=== PATIENT | female | born 1950 | race Caucasian/White ===

== ENCOUNTER → 2021-12-10 07:57 | Outpatient (CLI) | payer MEDICARE, SELFPAY ==
--- NOTE | ~2021-12-10 | MR_ITS ---
EXAMINATION: MR lumbar spine wo con EXAM DATE: 12/10/2021 09:35 INDICATION: Lumbar radiculopathy lumbar radiculopathy TECHNIQUE: Multi-sequential, multiplanar MR images of the lumbar spine were obtained without contrast . Sagittal T1, T2, T2 fat saturation images. Axial T2 weighted images. There is no prior study for comparison. FINDINGS: Thoracolumbar Coffey rods. There is moderate lumbar levoscoliosis. Interbody fusion at L2-3, L3-4, L4-5 and L5-S1. There is small blooming artifact which appears to be in the right central anterior epidural space at the L3 level, which could be seen with small metallic surgical clip or fo reign body. Laminotomies or laminectomies L2-S1. Paraspinal soft tissue is unremarkable. There is 3 mm anterolisthesis L4 on L5. The vertebral bodies are otherwise aligned. The conus medullaris termina polly at the L1/2 level and has normal signal intensity and morphology. Level by level evaluation: T12-L1: Disc does not extend beyond the endplate margin. Facet arthropathy: Mild. Neural foraminal stenosis: No stenosis. Central canal stenosis: No stenosis. L1-L2: Disc does not extend beyond the endplate margin. Facet arthropathy: Mild. Neural foraminal stenosis: No stenosis. Central canal stenosis: No stenosis. L2-L3: This level is fused. Facet arthropathy: Poorly visualized. Neural foraminal stenosis: No stenosis. Central canal stenosis: No stenosis. L3-L4: This level is fused. Facet arthropathy: Poorly visualized. Neural foraminal stenosis: No stenosis. Central canal stenosis: No stenosis. L4-L5: This level is fused. Facet arthropathy: Fused. Neural foraminal stenosis: No stenosis. Central canal stenosis: No stenosis. L5-S1: This level is fused. Facet arthropathy: Fused. Neural foraminal stenosis: No stenosis. Central canal stenosis: No stenosis. IMPRESSION: 1. Moderate lumbar levoscoliosis. 2. Patent neural foramen and central canal. 3. Blooming artifact posterior to the L3 vertebral body. Reviewed, dictated and finalized at location A. PENDENT CROP CONSULTANT
--- NOTE | ~2021-12-10 | MR_ITS ---
EXAMINATION: MR thoracic spine wo con EXAM DATE: 12/10/2021 09:35 INDICATION: Back pain, thoracic back pain, thoracic right leg pain. Scoliosis. TECHNIQUE: Multi-sequential, multiplanar MR images of the thoracic spine were obtained without contra st. Sagittal T1, T2, T2 fat saturation, axial T2 weighted images reviewed. Correlation is made to MR lumbar spine earlier same date. FINDINGS: There is 26 degrees of thoracic dextroscoliosis, 16 degrees of lumbar levoscoliosis. Thorac olumbar Coffey rods causing artifact. There is moderate anterior wedging 2 and upper thoracic lb tebral body, probably T3. No evidence of central canal stenosis, vertebral bodies appear aligned in t he AP dimension. Limited neural foraminal evaluation due to artifact. Evidence of mild thoracic facet arthropathy. The spinal cord signal intensity and intrinsic morphology is normal. Paraspinal soft ti ssue is unremarkable. No evidence of vertebral body edema. IMPRESSION: Moderate thoracic dextroscoliosis, lumbar levoscoliosis. Reviewed, dictated and finalized at location A. PROCUREMENT COORDINATOR
== END ==
PROVIDERS: Visit Provider Nurse Practitioner Family
DX: M54.6 Pain in thoracic spine (principal); M54.16 Radiculopathy, lumbar region; Z98.1 Arthrodesis status
CPT/HCPCS: 72146; 72148

== ENCOUNTER → 2022-01-25 13:02 | Outpatient (CLI) | payer MEDICARE, SELFPAY ==
--- NOTE | ~2022-01-25 | US_ITS ---
EXAMINATION: US pelvic complete w TV DATE: 01/25/2022 13:48 INDICATION: Right lower quadrant pain and bloating Comparison:No prior studies for comparison. TECHNIQUE: Multiple transabdominal and endovaginal sonographic images of the pelvis performed. FINDINGS: The uterus measures 5.6 x 2.6 x 3.6 cm. There is a shadowing calcified uterine fibroid post eriorly at the fundus measuring 1.3 cm The endometrial complex measures 7 mm. The right ovary measures 1.7 x 1.3 x 1.3 cm and the left ovary measures 1.8 x 1.7 x 0.9 cm. There ar e small follicles in each ovary. Normal doppler signal in both ovaries. There is no free fluid in the pelvis. There are no abnormal masses seen on either side. IMPRESSION: 1. Thickened endomtrial complex. The differential diagnosis includes endometrial hyperplasia, polyp a nd carcinoma. Biopsy is recommended. 2: Calcified 1.3 cm uterine fibroid. Reviewed, dictated and finalized at location B. UE BINDER IMPRESSION: 1. Thickened endomtrial complex. The differential diagnosis includes endometria l hyperplasia, polyp and carcinoma. Biopsy is recommended. 2: Calcified 1.3 cm uterine fibroid.
== END ==
DX: R10.31 Right lower quadrant pain (principal); D25.9 Leiomyoma of uterus, unspecified
CPT/HCPCS: 76830; 76856